=== PATIENT | female | born 1940 | race Caucasian/White ===

== ENCOUNTER 2019-01-19 17:50 | Emergency (ER) | payer MEDICARE, BC, MEDICAID ==
[2019-01-19 17:58] VITALS: BP 124/58
--- NOTE | 2019-01-19 20:16 | EDM.PDOC ---
ED HPI GENERAL MEDICAL PROBLEM - General Chief Complaint: Cardiovascular Problem Stated Complaint: [facility] Time Seen by Provider: 01/19/19 18:05 - History of Present Illness INITIAL COMMENTS - FREE TEXT/NARRATIVE: 78-year-old female brought in from [facility] facility with some chest discomfort episodes of lightheadedness. Patient's been having episodes were pulse drops in the 30s often times she has some chest pressure and some chest discomfort associated with this. Patient had an episode prior to EMS being called today. She has these episodes at rest does not seem to get them while doing exertional activities. The patient is placed in a [facility] home because of inability to really care for herself. The patient has no interest in no desire aggressive workup for anything she is a DNR and declines going to [place] for cardiology evaluation at this point. - Related Data Allergies Allergy/AdvReac Type Severity Reaction Status Date / Time codeine AdvReac Nausea and Verified 01/19/19 17:58 Vomiting Sulfa (Sulfonamide AdvReac Nausea and Verified 01/19/19 17:58 Antibiotics) Vomiting Home Meds: Home Meds Cranberry 1 tab PO DAILY 10/13/16 [History] Vitamin B Complex [B Complex] 1 tab PO BIDMEALS 10/14/16 [History] Acetaminophen [Tylenol] 650 mg PO Q4H PRN #30 tablet 10/19/16 [Rx] Albuterol [Ventolin HFA] 8 gm INH TID #1 inhaler 10/19/16 [Rx] Albuterol/Ipratropium [DuoNeb 3.0-0.5 MG/3 ML] 3 ml NEB Q4H PRN #30 neb [Rx] Benzocaine/Cetylpyrd/Menthol [Cepacol Sore Throat] 1 lozenge MUCMEM Q2H PRN #30 louis 10/19/16 [Rx] Cholecalciferol (Vitamin D3) [Vitamin D3] 5,000 units PO DAILY #30 tablet [Rx] Dextromethorphan/guaiFENesin [Robitussin DM] 10 ml PO Q4H cup 10/19/16 [Rx] FLUoxetine [PROzac] 20 mg PO DAILY #30 cap 10/19/16 [Rx] Fluticasone/Salmeterol [Advair Diskus 250-50] 0 puff INH BID #1 inhaler [Rx] Furosemide [Lasix] 40 mg PO DAILY #30 tablet 10/19/16 [Rx] Multivitamins,Therapeutic [Thera] 1 each PO BEDTIME tablet 10/19/16 [Rx] Pantoprazole [ProTONIX] 40 mg PO DAILY #30 tab.cr 10/19/16 [Rx] Potassium Chloride 20 meq PO DAILY #30 tablet.er 10/19/16 [Rx] Past Medical History HEENT History: Reports: Impaired Vision, Other (See Below) Other HEENT History: wears glasses Cardiovascular History: Reports: Heart Failure, Syncope Other Cardiovascular History: syncopal episode happening for awhile, states HR irregular 30-100 Respiratory History: Reports: Asthma, COPD Other Respiratory History: patient states she has had these episodes of shortness of breath her whole life; states she has always been told it was recurrent bronchitis Gastrointestinal History: Reports: None Genitourinary History: Reports: UTI, Recurrent 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: Musculoskeletal History: Reports: Arthritis Neurological History: Reports: Migraines Psychiatric History: Reports: Depression Endocrine/Metabolic History: Reports: Obesity/BMI 30+ Hematologic History: Reports: Other (See Below) Other Hematologic History: frequent clots Immunologic History: Reports: None Oncologic (Cancer) History: Reports: None Dermatologic History: Reports: None - Infectious Disease History Infectious Disease History: Reports: MRSA - Past Surgical History Head Surgeries/Procedures: Reports: None HEENT Surgical History: Reports: Oral Surgery, Tonsillectomy Female Surgical History: Reports: Tubal Ligation Social & Family History - Family History Family Medical History: Noncontributory Cardiac: Reports: CAD Other Cardiac Family History: Patient states there is a significant cardiac history on both her mother's and father's sides. Respiratory: Reports: Asthma GI: Reports: None : Reports: None OBGYN: Reports: None Musculoskeletal: Reports: None Neurological: Reports: None Psychiatric: Reports: None Endocrine/Metabolic: Reports: None Hematologic: Reports: None Immunologic: Reports: None Oncologic: Reports: None - Tobacco Use Smoking Status *Q: Never Smoker - Caffeine Use Caffeine Use: Reports: Tea - Recreational Drug Use Recreational Drug Use: No ED ROS GENERAL - Review of Systems Review Of Systems: See Below Constitutional: Reports: No Symptoms HEENT: Reports: No Symptoms Respiratory: Reports: No Symptoms Cardiovascular: Reports: Chest Pain, Other (Multiple near syncopal type episodes ). Denies: Syncope GI/Abdominal: Reports: No Symptoms : Reports: No Symptoms Neurological: Reports: No Symptoms ED EXAM, GENERAL - Physical Exam Exam: See Below Exam Limited By: No Limitations General Appearance: Alert, No Apparent Distress Head: Atraumatic, Normocephalic Neck: Normal Inspection, Supple, Non-Tender, Full Range of Motion Respiratory/Chest: No Respiratory Distress, Lungs Clear, Normal Breath Sounds Cardiovascular: Regular Rate, Rhythm, No Murmur, Other (He has chronic lower extremity edema however this is improving not worsening over time) GI/Abdominal: Normal Bowel Sounds, Soft, Non-Tender Neurological: Alert, Oriented, Normal Cognition Psychiatric: Normal Affect, Normal Mood Skin Exam: Warm, Dry, Intact EKG INTERPRETATION EKG Date: 01/19/19 Rhythm: NSR (Mild bradycardia rate 53) [place]: Normal P-Wave: Present QRS: Normal ST-T: Normal QT: Normal Comparison: No Change EKG Interpretation Comments: Probable normal EKG Course - Vital Signs Last Recorded V/S: Last Vital Signs Temp 36.8 C 01/19/19 17:54 Pulse 54 L 01/19/19 17:54 Resp 18 01/19/19 17:54 BP 124/58 L 01/19/19 17:54 Pulse Ox 96 01/19/19 17:54 - Orders/Labs/Meds Orders: Active Orders 24 hr Category Date Time Status EKG 12 Lead [EKG Documentation Completion] [RC] URGENT Care 01/19/19 18:11 Active Holter Monitor 48 Hours [RC] .PRN Care 01/19/19 20:13 Active Chest 1V Frontal [CR] Stat Exams 01/19/19 18:15 Taken Labs: Laboratory Tests 01/19/19 01/19/19 01/19/19 Range/Units 18:59 18:59 18:59 WBC 6.40 (3.98-10.04) K/mm3 RBC 3.73 L (3.98-5.22) M/mm3 Hgb 11.1 L (11.2-15.7) gm/L Hct 33.2 L (34.1-44.9) % MCV 89.0 (79.4-94.8) fl MCH 29.8 (25.6-32.2) pg MCHC 33.4 (32.2-35.5) g/dl RDW Std Deviation 43.6 (36.4-46.3) fL Plt Count 209 (182-369) K/mm3 MPV 9.8 (9.4-12.3) fl Neutrophils % (Manual) 49 (40-60) % Band Neutrophils % 0 (0-10) % Lymphocytes % (Manual) 40 (20-40) % Atypical Lymphs % 0 % Monocytes % (Manual) 8 (2-10) % Eosinophils % (Manual) 3 (0.7-5.8) % Basophils % (Manual) 0 L (0.1-1.2) Platelet Estimate Adequate RBC Morph Comment Normal PT 11.1 (9.5-12.1) SECONDS INR 1.02 APTT 28 (24-31) SECONDS Sodium 144 (136-145) mEq/L Potassium 3.4 L (3.5-5.1) mEq/L Chloride 107 (98-107) mEq/L Carbon Dioxide 27 (21-32) mEq/L Anion Gap 13.4 (5-15) BUN 16 (7-18) mg/dL Creatinine 1.4 H (0.55-1.02) mg/dL Est Cr Clr Drug Dosing 26.62 mL/min Estimated GFR (MDRD) 36 (>60) mL/min BUN/Creatinine Ratio 11.4 L (14-18) Glucose 96 (83-115) mg/dL Calcium 8.1 L (8.5-10.1) mg/dL Total Bilirubin 0.3 (0.2-1.0) mg/dL AST 15 (15-37) U/L ALT 23 (14-59) U/L Alkaline Phosphatase 64 (46-116) U/L Troponin I < 0.017 (0.00-0.056) ng/mL Total Protein 6.3 L (6.4-8.2) g/dl Albumin 3.1 L (3.4-5.0) g/dl Globulin 3.2 gm/dL Albumin/Globulin Ratio 1.0 (1-2) - Re-Assessments/Exams Free Text/Narrative Re-Assessment/Exam: 01/19/19 20:14 78-year-old female evaluated for lightheadedness dizziness chest pain and episodes of her pulse dropping into the 30s. She was sent here from the longterm for evaluation. Cardiac evaluation thus far is unremarkable did offer to keep her for a second troponin however this is declined she wants to go home back to the [facility] facility.. Case discussed with the patient in detail about her CODE STATUS and about interventions she does not want any aggressive therapy she is a DNR she does not want to go to [place] for catheterization or further cardiac evaluation however if a pacemaker down the road improves her quality of life she is willing to consider this. Departure - Departure Time of Disposition: 20:15 Disposition: DC/Tfer to SNF 03 Reason for Transfer *Q: Other Clinical Impression: History of bradycardia, Chest pain Instructions: Bradycardia, Adult, Nonspecific Chest Pain, [id number] Referrals: Celestino Vázquez MD [Primary Care Provider] - Forms: ED Department Discharge Additional Instructions: Return to the emergency room with any questions problems worsening symptoms. Follow-up with Dr. Vázquez a couple of days after the Holter monitor is completed. Return the Holter monitor as directed. - My Orders Last 24 Hours: My Active Orders 01/19/19 18:11 EKG 12 Lead [EKG Documentation Completion] [RC] URGENT 01/19/19 18:15 Chest 1V Frontal [CR] Stat 01/19/19 20:13 Holter Monitor 48 Hours [RC] .PRN - Assessment/Plan Last 24 Hours: My Active Orders 01/19/19 18:11 EKG 12 Lead [EKG Documentation Completion] [RC] URGENT 01/19/19 18:15 Chest 1V Frontal [CR] Stat 01/19/19 20:13 Holter Monitor 48 Hours [RC] .PRN
--- NOTE | 2019-01-20 06:09 | CR ---
Chest: Portable view of the chest was obtained. Comparison: Prior chest x-ray of 10/16/16. Heart size and mediastinum are within normal limits for portable technique. Minimal atelectasis within the left lateral costophrenic angle is incidentally noted. Lungs otherwise are clear. Bony structures are grossly intact. Impression: 1. Incidental finding. Nothing acute is appreciated on portable chest x-ray. Diagnostic code #2
== END 2019-01-19 20:40 ==
LOC: JD.ED 17:50
DX: R07.89 Other chest pain (principal); Z88.5 Allergy status to narcotic agent; Z88.2 Allergy status to sulfonamides; Z79.899 Other long term (current) drug therapy
CPT/HCPCS: 36415; 71045; 71045-26; 80053; 84484; 85007; 85027; 85610; 85730; 93005; 93010; 99284; 99285-25

== ENCOUNTER 2019-01-20 14:34 | Observation (INO) | payer MEDICARE, BC, MEDICAID ==
[2019-01-20] MEDS ORDERED: Acetaminophen 325 MG Tab PO ONE (17:07)
--- NOTE | 2019-01-20 17:32 | EDM.PDOC ---
ED HPI GENERAL MEDICAL PROBLEM - General Chief Complaint: Chest Pain Stated Complaint: [facility] Time Seen by Provider: 01/20/19 14:40 - History of Present Illness INITIAL COMMENTS - FREE TEXT/NARRATIVE: 78-year-old female returns the emergency room with a recurrent bout of chest pain this morning she had some chest pain associated with a low pulse she's not sure how low. Patient was seen here yesterday and was pretty resistant to the idea of further evaluation and ultimately wanted to go home. She does not want intervention such as cardiac catheterization and that sort however we did discuss the bradycardia as it seems to be associated with a lot of her symptoms. She is now considering and is willing to have a pacemaker placed if it will improve the quality of her life. Today's episode resolved after single nitroglycerin by EMS. 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: Other (see below) Other Treatments SPEED BELT SANDER TENDER: see ambulance report Chest Pain Score (Numeric/FACES): 0 - Related Data Allergies Allergy/AdvReac Type Severity Reaction Status Date / Time codeine AdvReac Nausea and Verified 01/19/19 17:58 Vomiting Sulfa (Sulfonamide AdvReac Nausea and Verified 01/19/19 17:58 Antibiotics) Vomiting Home Meds: Home Meds Cranberry 1 tab PO DAILY 10/13/16 [History] Vitamin B Complex [B Complex] 1 tab PO BIDMEALS 10/14/16 [History] Acetaminophen [Tylenol] 650 mg PO Q4H PRN #30 tablet 10/19/16 [Rx] Albuterol [Ventolin HFA] 8 gm INH TID #1 inhaler 10/19/16 [Rx] Albuterol/Ipratropium [DuoNeb 3.0-0.5 MG/3 ML] 3 ml NEB Q4H PRN #30 neb [Rx] Benzocaine/Cetylpyrd/Menthol [Cepacol Sore Throat] 1 lozenge MUCMEM Q2H PRN #30 louis 10/19/16 [Rx] Cholecalciferol (Vitamin D3) [Vitamin D3] 5,000 units PO DAILY #30 tablet [Rx] Dextromethorphan/guaiFENesin [Robitussin DM] 10 ml PO Q4H cup 10/19/16 [Rx] FLUoxetine [PROzac] 20 mg PO DAILY #30 cap 10/19/16 [Rx] Fluticasone/Salmeterol [Advair Diskus 250-50] 0 puff INH BID #1 inhaler [Rx] Furosemide [Lasix] 40 mg PO DAILY #30 tablet 10/19/16 [Rx] Multivitamins,Therapeutic [Thera] 1 each PO BEDTIME tablet 10/19/16 [Rx] Pantoprazole [ProTONIX] 40 mg PO DAILY #30 tab.cr 10/19/16 [Rx] Potassium Chloride 20 meq PO DAILY #30 tablet.er 10/19/16 [Rx] Past Medical History HEENT History: Reports: Impaired Vision, Other (See Below) Other HEENT History: wears glasses Cardiovascular History: Reports: Heart Failure, Syncope Other Cardiovascular History: syncopal episode happening for awhile, states HR irregular 30-100 Respiratory History: Reports: Asthma, COPD Other Respiratory History: patient states she has had these episodes of shortness of breath her whole life; states she has always been told it was recurrent bronchitis Gastrointestinal History: Reports: None Genitourinary History: Reports: UTI, Recurrent 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: Musculoskeletal History: Reports: Arthritis Neurological History: Reports: Migraines Psychiatric History: Reports: Depression Endocrine/Metabolic History: Reports: Obesity/BMI 30+ Hematologic History: Reports: Other (See Below) Other Hematologic History: frequent clots Immunologic History: Reports: None Oncologic (Cancer) History: Reports: None Dermatologic History: Reports: None - Infectious Disease History Infectious Disease History: Reports: MRSA - Past Surgical History Head Surgeries/Procedures: Reports: None HEENT Surgical History: Reports: Oral Surgery, Tonsillectomy Female Surgical History: Reports: Tubal Ligation Social & Family History - Family History Family Medical History: Noncontributory Cardiac: Reports: CAD Other Cardiac Family History: Patient states there is a significant cardiac history on both her mother's and father's sides. Respiratory: Reports: Asthma GI: Reports: None : Reports: None OBGYN: Reports: None Musculoskeletal: Reports: None Neurological: Reports: None Psychiatric: Reports: None Endocrine/Metabolic: Reports: None Hematologic: Reports: None Immunologic: Reports: None Oncologic: Reports: None - Tobacco Use Smoking Status *Q: Never Smoker - Caffeine Use Caffeine Use: Reports: Coffee, Soda - Recreational Drug Use Recreational Drug Use: No ED ROS GENERAL - Review of Systems Review Of Systems: See Below Constitutional: Reports: No Symptoms HEENT: Reports: No Symptoms Respiratory: Reports: No Symptoms Cardiovascular: Reports: Chest Pain, Lightheadedness, Other (Low pulse rate) Endocrine: Reports: No Symptoms GI/Abdominal: Reports: No Symptoms : Reports: No Symptoms Musculoskeletal: Reports: No Symptoms Skin: Reports: No Symptoms Neurological: Reports: No Symptoms Psychiatric: Reports: No Symptoms Hematologic/Lymphatic: Reports: No Symptoms ED EXAM, GENERAL - Physical Exam Exam: See Below Exam Limited By: No Limitations General Appearance: Alert, No Apparent Distress, Other (She was pain-free the time of my examination her vital signs look reasonable her pulse is in the 50s and 60s. She has a little bit of a headache but she had this before the episode prior to coming and she was treated by EMS with nitroglycerin and aspirin 1 dose of sublingual nitroglycerin.) Head: Atraumatic, Normocephalic Neck: Normal Inspection, Supple, Non-Tender, Full Range of Motion Respiratory/Chest: No Respiratory Distress, Lungs Clear, Normal Breath Sounds Cardiovascular: Regular Rate, Rhythm, No Edema, No Murmur, Bradycardia (Rate in the 50s on my exam), Other (Telemetry mostly shows rate in the 50s consistent QRSs following a P-wave) GI/Abdominal: Normal Bowel Sounds, Soft, Non-Tender Back Exam: Normal Inspection. No: CVA Tenderness (L), CVA Tenderness (R) Extremities: Other (Support hose in place) EKG INTERPRETATION EKG Date: 01/20/19 Rhythm: NSR Rate (Beats/Min): 55 [place]: Normal P-Wave: Present QRS: Other (Mostly normal possible early transition) ST-T: Other (Very subtle very nonspecific changes) QT: Normal Comparison: No Change Course - Vital Signs Last Recorded V/S: Last Vital Signs Temp 36.8 C 01/20/19 14:53 Pulse 54 L 01/20/19 14:53 Resp 16 01/20/19 14:53 BP 129/66 01/20/19 14:53 Pulse Ox 93 L 01/20/19 14:53 - Orders/Labs/Meds Orders: Active Orders 24 hr Category Date Time Status Patient Status [ADT] Routine ADT 01/20/19 18:52 Active Bedrest Bedside Commode [RC] ASDIRECTED Care 01/20/19 18:51 Active Cardiac Monitoring [RC] CONTINUOUS Care 01/20/19 18:56 Active EKG Documentation Completion [RC] STAT Care 01/20/19 15:01 Active Height and Weight [RC] DAILY Care 01/20/19 18:51 Active Intake and Output [RC] QSHIFT Care 01/20/19 18:56 Active Oxygen Therapy [RC] PRN Care 01/20/19 18:52 Active Pulse Oximetry [RC] CONTINUOUS Care 01/20/19 18:56 Active VTE/DVT Education [RC] PER UNIT ROUTINE Care 01/20/19 18:52 Active Vital Signs [RC] Q4H Care 01/20/19 18:52 Active Regular Diet [DIET] Diet 01/20/19 Dinner Active Chest 1V Frontal [CR] Stat Exams 01/20/19 15:09 Taken TROPONIN I [CHEM] Timed Lab 01/20/19 22:00 Ordered TROPONIN I [CHEM] Timed Lab 01/21/19 04:00 Ordered TROPONIN I [CHEM] Timed Lab 01/21/19 10:00 Ordered Acetaminophen [Tylenol] Med 01/20/19 18:59 Ordered 650 mg PO Q4H PRN Albuterol/Ipratropium [DuoNeb 3.0-0.5 MG/3 ML] Med 01/20/19 18:59 Ordered 3 ml NEB Q4H PRN Aspirin [Ecotrin] Med 01/20/19 19:15 Ordered 325 mg PO DAILY FLUoxetine [PROzac] Med 01/21/19 09:00 Ordered 20 mg PO DAILY Heparin Sodium Med 01/20/19 19:00 Ordered 5,000 units SUBCUT Q8H Isosorbide Mononitrate [Imdur] Med 01/20/19 19:15 Ordered 30 mg PO DAILY Ondansetron [Zofran] Med 01/20/19 18:51 Ordered 4 mg IV Q6H PRN Pantoprazole [ProTONIX] Med 01/21/19 09:00 Ordered 40 mg PO DAILY Sodium Chloride 0.9% [Normal Saline] 1,000 ml Med 01/20/19 19:00 Ordered IV ASDIRECTED Resuscitation Status Routine Resus Stat 01/20/19 18:51 Ordered EKG 12 Lead [EK] AM Ther 01/21/19 05:11 Ordered Medication Orders Acetaminophen (Tylenol) 650 mg PO Q4H PRN PRN Reason: Pain/Fever Albuterol/Ipratropium (Duoneb 3.0-0.5 Mg/3 Ml) 3 ml NEB Q4H PRN PRN Reason: SOB/wheezing Aspirin (Ecotrin) 325 mg PO DAILY [facility] Fluoxetine HCl (Prozac) 20 mg PO DAILY [facility] Heparin Sodium (Porcine) (Heparin Sodium) 5,000 units SUBCUT Q8H [facility] Sodium Chloride (Normal Saline) 1,000 mls @ 100 mls/hr IV ASDIRECTED [facility] Isosorbide Mononitrate (Imdur) 30 mg PO DAILY [facility] Ondansetron HCl (Zofran) 4 mg IV Q6H PRN PRN Reason: Nausea/Vomiting Pantoprazole Sodium (Protonix) 40 mg PO DAILY [facility] Labs: Laboratory Tests 01/20/19 01/20/19 01/20/19 Range/Units 15:24 15:24 15:24 WBC 5.65 (3.98-10.04) K/mm3 RBC 3.62 L (3.98-5.22) M/mm3 Hgb 10.9 L (11.2-15.7) gm/L Hct 32.7 L (34.1-44.9) % MCV 90.3 (79.4-94.8) fl MCH 30.1 (25.6-32.2) pg MCHC 33.3 (32.2-35.5) g/dl RDW Std Deviation 44.0 (36.4-46.3) fL Plt Count 207 (182-369) K/mm3 MPV 10.1 (9.4-12.3) fl Neutrophils % (Manual) 67 H (40-60) % Band Neutrophils % 0 (0-10) % Lymphocytes % (Manual) 28 (20-40) % Atypical Lymphs % 0 % Monocytes % (Manual) 3 (2-10) % Eosinophils % (Manual) 2 (0.7-5.8) % Basophils % (Manual) 0 L (0.1-1.2) Platelet Estimate Adequate RBC Morph Comment Normal Sodium 143 (136-145) mEq/L Potassium 3.7 (3.5-5.1) mEq/L Chloride 105 (98-107) mEq/L Carbon Dioxide 29 (21-32) mEq/L Anion Gap 12.7 (5-15) BUN 15 (7-18) mg/dL Creatinine 1.6 H (0.55-1.02) mg/dL Est Cr Clr Drug Dosing 23.29 mL/min Estimated GFR (MDRD) 31 (>60) mL/min BUN/Creatinine Ratio 9.4 L (14-18) Glucose 103 (83-115) mg/dL Calcium 8.6 (8.5-10.1) mg/dL Magnesium 2.2 (1.8-2.4) mg/dl Total Bilirubin 0.3 (0.2-1.0) mg/dL AST 14 L (15-37) U/L ALT 24 (14-59) U/L Alkaline Phosphatase 67 (46-116) U/L Troponin I < 0.017 (0.00-0.056) ng/mL Total Protein 6.2 L (6.4-8.2) g/dl Albumin 3.1 L (3.4-5.0) g/dl Globulin 3.1 gm/dL Albumin/Globulin Ratio 1.0 (1-2) Urine Color (Yellow) Urine Appearance (Clear) Urine pH (5.0-8.0) Ur Specific [place] (1.005-1.030) Urine Protein (Negative) Urine Glucose (UA) (Negative) Urine Ketones (Negative) Urine Occult Blood (Negative) Urine Nitrite (Negative) Urine Bilirubin (Negative) Urine Urobilinogen (0.2-1.0) Ur Leukocyte Esterase (Negative) Urine RBC (0-5) /hpf Urine WBC (0-5) /hpf Ur Epithelial Cells (0-5) /hpf Urine Bacteria (FEW) /hpf Urine Mucus (FEW) /hpf 01/20/19 Range/Units 16:35 WBC (3.98-10.04) K/mm3 RBC (3.98-5.22) M/mm3 Hgb (11.2-15.7) gm/L Hct (34.1-44.9) % MCV (79.4-94.8) fl MCH (25.6-32.2) pg MCHC (32.2-35.5) g/dl RDW Std Deviation (36.4-46.3) fL Plt Count (182-369) K/mm3 MPV (9.4-12.3) fl Neutrophils % (Manual) (40-60) % Band Neutrophils % (0-10) % Lymphocytes % (Manual) (20-40) % Atypical Lymphs % % Monocytes % (Manual) (2-10) % Eosinophils % (Manual) (0.7-5.8) % Basophils % (Manual) (0.1-1.2) Platelet Estimate RBC Morph Comment Sodium (136-145) mEq/L Potassium (3.5-5.1) mEq/L Chloride (98-107) mEq/L Carbon Dioxide (21-32) mEq/L Anion Gap (5-15) BUN (7-18) mg/dL Creatinine (0.55-1.02) mg/dL Est Cr Clr Drug Dosing mL/min Estimated GFR (MDRD) (>60) mL/min BUN/Creatinine Ratio (14-18) Glucose (83-115) mg/dL Calcium (8.5-10.1) mg/dL Magnesium (1.8-2.4) mg/dl Total Bilirubin (0.2-1.0) mg/dL AST (15-37) U/L ALT (14-59) U/L Alkaline Phosphatase (46-116) U/L Troponin I (0.00-0.056) ng/mL Total Protein (6.4-8.2) g/dl Albumin (3.4-5.0) g/dl Globulin gm/dL Albumin/Globulin Ratio (1-2) Urine Color Yellow (Yellow) Urine Appearance Clear (Clear) Urine pH 7.0 (5.0-8.0) Ur Specific [place] 1.015 (1.005-1.030) Urine Protein Negative (Negative) Urine Glucose (UA) Negative (Negative) Urine Ketones Negative (Negative) Urine Occult Blood Negative (Negative) Urine Nitrite Negative (Negative) Urine Bilirubin Negative (Negative) Urine Urobilinogen 0.2 (0.2-1.0) Ur Leukocyte Esterase Trace H (Negative) Urine RBC 0-5 (0-5) /hpf Urine WBC 5-10 H (0-5) /hpf Ur Epithelial Cells 0-5 (0-5) /hpf Urine Bacteria Few (FEW) /hpf Urine Mucus Not seen (FEW) /hpf Meds: Medications Generic Name Dose Route Start Last Admin Trade Name Freq PRN Reason Stop Dose Admin Acetaminophen 650 mg 01/20/19 18:59 Tylenol PO Q4H PRN Pain/Fever Albuterol/Ipratropium 3 ml 01/20/19 18:59 Duoneb 3.0-0.5 Mg/3 Ml NEB Q4H PRN SOB/wheezing Aspirin 325 mg 01/20/19 19:15 Ecotrin PO DAILY [facility] Fluoxetine HCl 20 mg 01/21/19 09:00 Prozac PO DAILY [facility] Heparin Sodium (Porcine) 5,000 units 01/20/19 19:00 Heparin Sodium SUBCUT Q8H [facility] Sodium Chloride 1,000 mls @ 100 mls/hr 01/20/19 19:00 Normal Saline IV ASDIRECTED [facility] Isosorbide Mononitrate 30 mg 01/20/19 19:15 Imdur PO DAILY [facility] Ondansetron HCl 4 mg 01/20/19 18:51 Zofran IV Q6H PRN Nausea/Vomiting Pantoprazole Sodium 40 mg 01/21/19 09:00 Protonix PO DAILY [facility] Discontinued Medications Generic Name Dose Route Start Last Admin Trade Name Freq PRN Reason Stop Dose Admin Acetaminophen 650 mg 01/20/19 17:07 01/20/19 17:41 Tylenol PO 01/20/19 17:08 650 mg NOW ONE Administration - Re-Assessments/Exams Free Text/Narrative Re-Assessment/Exam: 01/20/19 18:21 I discussed the situation with Dr. Benedict who is willing to come to see the patient I also discussed the situation with Dr. Ware fur tinter at [facility] in [place] who recommended that we watch the patient to see if we can confirm sick sinus syndrome as a potential cause because of her wishes not to get too aggressive albeit she is considering pacemaker he did recommend that a lot of her bradycardia could be secondary to ischemia in starting her on Imdur 30 mg daily might be of some benefit to help her. Departure - Departure Time of Disposition: 18:22 Disposition: Admitted As Inpatient 67 Clinical Impression: Bradycardia, Chest pain Referrals: Celestino Vázquez MD [Primary Care Provider] - Forms: ED Department Discharge - My Orders Last 24 Hours: My Active Orders 01/20/19 15:01 EKG Documentation Completion [RC] STAT 01/20/19 15:09 Chest 1V Frontal [CR] Stat - Assessment/Plan Last 24 Hours: My Active Orders 01/20/19 15:01 EKG Documentation Completion [RC] STAT 01/20/19 15:09 Chest 1V Frontal [CR] Stat
[2019-01-20] MEDS ORDERED: Ondansetron 4 MG/2 ML SDV IV PRN (18:51)
[2019-01-20] MEDS ORDERED: Albuterol/Ipratropium 3.0-0.5 MG/3 ML Neb Soln NEB PRN (18:59)
[2019-01-20] MEDS ORDERED: Acetaminophen 325 MG Tab PO PRN (18:59)
[2019-01-20] MEDS ORDERED: Temazepam 15 MG Cap PO PRN (19:16)
--- NOTE | 2019-01-20 19:51 | PCM.HP ---
H&P History of Present Illness - General Date of Service: 01/20/19 Admit Problem/Dx: Admission Diagnosis/Problem Admission Diagnosis/Problem Chest pain, rule out acute myocardial infarction Source of Information: Patient, Family - History of Present Illness Initial Comments - Free Text/Narative: 78-year-old female presents to the emergency room after having a recurrent bout of chest pain. Patient had chest pain this morning as she was waking up and was found to have a low pulse and blood pressure. Patient lives at [facility] and nursing found her to be bradycardic with a pulse of 41. She states the pain was heavy like bricks were on her chest. She denies any radiation. EMS was called and she was given nitroglycerin and aspirin in route to the emergency room. Symptoms resolved with nitroglycerin. She states that she has had a similar episode in the past. She has been having chest pains now for months. She was seen in the emergency room yesterday when she was walking down the [address] and everything turned marx and she fell down. She walked approximately 5 or 6 steps. At that time when nursing arrived her pulse was 34 and she has a low blood pressure. We are evaluating her at the request of the emergency room physician who spoke with cardiology in [place]. Cardiology would like her monitored on the floor with telemetry and given isosorbide mononitrate 30 mg. This will help determine if she is having bradycardia secondary to ischemia or sick sinus syndrome. Chest Pain Score (Numeric/FACES): 0 - Related Data Allergies/Adverse Reactions: Allergies Allergy/AdvReac Type Severity Reaction Status Date / Time codeine AdvReac Nausea and Verified 01/19/19 17:58 Vomiting Sulfa (Sulfonamide AdvReac Nausea and Verified 01/19/19 17:58 Antibiotics) Vomiting Home Medications: Home Meds Acetaminophen [Tylenol] 650 mg PO DAILY 01/20/19 [History] Albuterol [Ventolin HFA] 1 puff INH Q6H PRN 01/20/19 [History] Cholecalciferol (Vitamin D3) [Vitamin D3] 3,000 unit PO DAILY 01/20/19 [History] Cranberry 200 mg PO DAILY 01/20/19 [History] FLUoxetine HCl [Fluoxetine HCl] 40 mg PO DAILY 01/20/19 [History] Fluticasone/Salmeterol [Advair 250-50] 1 puff INH BID 01/20/19 [History] Furosemide 40 mg PO BID 01/20/19 [History] Multivit with Iron,Minerals [Spectravite Senior] 1 tab PO DAILY 01/20/19 [ History] Potassium Chloride [Klor-Con M20] 20 meq PO DAILY 01/20/19 [History] Simethicone 80 mg PO Q6H PRN 01/20/19 [History] traZODone HCl [Trazodone HCl] 50 mg PO DAILY 01/20/19 [History] Past Medical History HEENT History: Reports: Impaired Vision, Other (See Below) Other HEENT History: wears glasses Cardiovascular History: Reports: Heart Failure, Syncope Other Cardiovascular History: syncopal episode happening for awhile, states HR irregular 30-100 Respiratory History: Reports: Asthma, COPD Other Respiratory History: patient states she has had these episodes of shortness of breath her whole life; states she has always been told it was recurrent bronchitis Gastrointestinal History: Reports: None Genitourinary History: Reports: UTI, Recurrent [employer] History: Reports: Musculoskeletal History: Reports: Arthritis Neurological History: Reports: Migraines Psychiatric History: Reports: Depression Endocrine/Metabolic History: Reports: Obesity/BMI 30+ Hematologic History: Reports: Other (See Below) Other Hematologic History: frequent clots Immunologic History: Reports: None Oncologic (Cancer) History: Reports: None Dermatologic History: Reports: None - Infectious Disease History Infectious Disease History: Reports: MRSA - Past Surgical History Head Surgeries/Procedures: Reports: None HEENT Surgical History: Reports: Oral Surgery, Tonsillectomy Female Surgical History: Reports: Tubal Ligation Social & Family History - Family History Family Medical History: Noncontributory Cardiac: Reports: CAD Other Cardiac Family History: Patient states there is a significant cardiac history on both her mother's and father's sides. Respiratory: Reports: Asthma GI: Reports: None : Reports: None OBGYN: Reports: None Musculoskeletal: Reports: None Neurological: Reports: None Psychiatric: Reports: None Endocrine/Metabolic: Reports: None Hematologic: Reports: None Immunologic: Reports: None Oncologic: Reports: None - Tobacco Use Smoking Status *Q: Never Smoker - Caffeine Use Caffeine Use: Reports: Coffee, Soda - Recreational Drug Use Recreational Drug Use: No H&P Review of Systems - Review of Systems: Review Of Systems: See Below General: Reports: Weakness, Fatigue HEENT: Reports: No Symptoms Pulmonary: Reports: No Symptoms. Denies: Shortness of Breath, Cough Cardiovascular: Reports: Chest Pain, Edema. Denies: Palpitations Gastrointestinal: Reports: Abdominal Pain, Nausea, Vomiting. Denies: Black Stool, Bloody Stool Genitourinary: Reports: No Symptoms. Denies: Dysuria Musculoskeletal: Reports: Back Pain Skin: Reports: No Symptoms Psychiatric: Reports: Depression Neurological: Reports: Syncope, Difficulty Walking Exam - Exam Exam: See Below - Vital Signs Vital Signs: Last Vital Signs Temp 98.3 F 01/20/19 14:53 Pulse 54 L 01/20/19 14:53 Resp 16 01/20/19 14:53 BP 129/66 01/20/19 14:53 Pulse Ox 93 L 01/20/19 14:53 Weight: 174 lb 4 oz - Exam General: Alert, Oriented HEENT: Conjunctiva Clear, Mucosa Moist & [place] Neck: Supple, Trachea Midline Lungs: Clear to Auscultation, Normal Respiratory Effort Cardiovascular: Regular Rhythm, Bradycardia GI/Abdominal Exam: Normal Bowel Sounds, Soft, Non-Tender, No Distention Extremities: Normal Inspection Skin: Warm, Dry Neurological: Cranial Nerves Intact Neuro Extensive - Mental Status: Alert Neuro Extensive - Motor, Sensory, Reflexes: CN II-XII Intact Psychiatric: Alert, Depressed - Patient Data Lab Results Last 24 hrs: Laboratory Results - last 24 hr 01/20/19 01/20/19 01/20/19 Range/Units 15:24 15:24 15:24 WBC 5.65 (3.98-10.04) K/mm3 RBC 3.62 L (3.98-5.22) M/mm3 Hgb 10.9 L (11.2-15.7) gm/L Hct 32.7 L (34.1-44.9) % MCV 90.3 (79.4-94.8) fl MCH 30.1 (25.6-32.2) pg MCHC 33.3 (32.2-35.5) g/dl RDW Std Deviation 44.0 (36.4-46.3) fL Plt Count 207 (182-369) K/mm3 MPV 10.1 (9.4-12.3) fl Neutrophils % (Manual) 67 H (40-60) % Band Neutrophils % 0 (0-10) % Lymphocytes % (Manual) 28 (20-40) % Atypical Lymphs % 0 % Monocytes % (Manual) 3 (2-10) % Eosinophils % (Manual) 2 (0.7-5.8) % Basophils % (Manual) 0 L (0.1-1.2) Platelet Estimate Adequate RBC Morph Comment Normal Sodium 143 (136-145) mEq/L Potassium 3.7 (3.5-5.1) mEq/L Chloride 105 (98-107) mEq/L Carbon Dioxide 29 (21-32) mEq/L Anion Gap 12.7 (5-15) BUN 15 (7-18) mg/dL Creatinine 1.6 H (0.55-1.02) mg/dL Est Cr Clr Drug Dosing 23.29 mL/min Estimated GFR (MDRD) 31 (>60) mL/min BUN/Creatinine Ratio 9.4 L (14-18) Glucose 103 (83-115) mg/dL Calcium 8.6 (8.5-10.1) mg/dL Magnesium 2.2 (1.8-2.4) mg/dl Total Bilirubin 0.3 (0.2-1.0) mg/dL AST 14 L (15-37) U/L ALT 24 (14-59) U/L Alkaline Phosphatase 67 (46-116) U/L Troponin I < 0.017 (0.00-0.056) ng/mL Total Protein 6.2 L (6.4-8.2) g/dl Albumin 3.1 L (3.4-5.0) g/dl Globulin 3.1 gm/dL Albumin/Globulin Ratio 1.0 (1-2) Urine Color (Yellow) Urine Appearance (Clear) Urine pH (5.0-8.0) Ur Specific [place] (1.005-1.030) Urine Protein (Negative) Urine Glucose (UA) (Negative) Urine Ketones (Negative) Urine Occult Blood (Negative) Urine Nitrite (Negative) Urine Bilirubin (Negative) Urine Urobilinogen (0.2-1.0) Ur Leukocyte Esterase (Negative) Urine RBC (0-5) /hpf Urine WBC (0-5) /hpf Ur Epithelial Cells (0-5) /hpf Urine Bacteria (FEW) /hpf Urine Mucus (FEW) /hpf 01/20/19 Range/Units 16:35 WBC (3.98-10.04) K/mm3 RBC (3.98-5.22) M/mm3 Hgb (11.2-15.7) gm/L Hct (34.1-44.9) % MCV (79.4-94.8) fl MCH (25.6-32.2) pg MCHC (32.2-35.5) g/dl RDW Std Deviation (36.4-46.3) fL Plt Count (182-369) K/mm3 MPV (9.4-12.3) fl Neutrophils % (Manual) (40-60) % Band Neutrophils % (0-10) % Lymphocytes % (Manual) (20-40) % Atypical Lymphs % % Monocytes % (Manual) (2-10) % Eosinophils % (Manual) (0.7-5.8) % Basophils % (Manual) (0.1-1.2) Platelet Estimate RBC Morph Comment Sodium (136-145) mEq/L Potassium (3.5-5.1) mEq/L Chloride (98-107) mEq/L Carbon Dioxide (21-32) mEq/L Anion Gap (5-15) BUN (7-18) mg/dL Creatinine (0.55-1.02) mg/dL Est Cr Clr Drug Dosing mL/min Estimated GFR (MDRD) (>60) mL/min BUN/Creatinine Ratio (14-18) Glucose (83-115) mg/dL Calcium (8.5-10.1) mg/dL Magnesium (1.8-2.4) mg/dl Total Bilirubin (0.2-1.0) mg/dL AST (15-37) U/L ALT (14-59) U/L Alkaline Phosphatase (46-116) U/L Troponin I (0.00-0.056) ng/mL Total Protein (6.4-8.2) g/dl Albumin (3.4-5.0) g/dl Globulin gm/dL Albumin/Globulin Ratio (1-2) Urine Color Yellow (Yellow) Urine Appearance Clear (Clear) Urine pH 7.0 (5.0-8.0) Ur Specific [place] 1.015 (1.005-1.030) Urine Protein Negative (Negative) Urine Glucose (UA) Negative (Negative) Urine Ketones Negative (Negative) Urine Occult Blood Negative (Negative) Urine Nitrite Negative (Negative) Urine Bilirubin Negative (Negative) Urine Urobilinogen 0.2 (0.2-1.0) Ur Leukocyte Esterase Trace H (Negative) Urine RBC 0-5 (0-5) /hpf Urine WBC 5-10 H (0-5) /hpf Ur Epithelial Cells 0-5 (0-5) /hpf Urine Bacteria Few (FEW) /hpf Urine Mucus Not seen (FEW) /hpf Result Diagrams: 01/20/19 15:24 01/20/19 15:24 EKG INTERPRETATION EKG Date: 01/20/19 Rhythm: Other (Sinus bradycardia) Rate (Beats/Min): 55 [place]: Normal P-Wave: Present QRS: Normal ST-T: Normal QT: Normal HI/PQ Interval: 118 EKG Interpretation Comments: Sinus bradycardia with ventricular rate of 55 bpm. Early R-wave transition otherwise normal. - Problem List (1) Bradycardia SNOMED Code(s): 15594979 ICD Code: R00.1 - BRADYCARDIA, UNSPECIFIED Status: Acute Current Visit: Yes (2) Chest pain SNOMED Code(s): 74708940 ICD Code: R07.9 - CHEST PAIN, UNSPECIFIED Status: Acute Current Visit: Yes (3) CKD (chronic kidney disease) SNOMED Code(s): 627950600 ICD Code: N18.9 - CHRONIC KIDNEY DISEASE, UNSPECIFIED Status: Chronic Priority: Medium Current Visit: No Qualifiers: Chronic kidney disease stage: unspecified stage Qualified Code(s): N18.9 - Chronic kidney disease, unspecified (4) Diastolic heart failure SNOMED Code(s): 180392214 ICD Code: I50.30 - UNSPECIFIED DIASTOLIC (CONGESTIVE) HEART FAILURE Status : Chronic Priority: Medium Current Visit: No Problem Details: Echo with normal EF but mild diastolic dysfunction; peripheral edema Qualifiers: Heart failure chronicity: acute on chronic Qualified Code(s): I50.33 - Acute on chronic diastolic (congestive) heart failure Problem List Initiated/Reviewed/Updated: Yes Orders Last 24hrs: Active Orders 24 hr Category Date Time Status Patient Status [ADT] Routine ADT 01/20/19 18:52 Active Bedrest Bedside Commode [RC] ASDIRECTED Care 01/20/19 18:51 Active Cardiac Monitoring [RC] CONTINUOUS Care 01/20/19 18:56 Active EKG Documentation Completion [RC] STAT Care 01/20/19 15:01 Active Height and Weight [RC] DAILY Care 01/20/19 18:51 Active Intake and Output [RC] QSHIFT Care 01/20/19 18:56 Active Oxygen Therapy [RC] PRN Care 01/20/19 18:52 Active Pulse Oximetry [RC] CONTINUOUS Care 01/20/19 18:56 Active VTE/DVT Education [RC] PER UNIT ROUTINE Care 01/20/19 18:52 Active Vital Signs [RC] Q4H Care 01/20/19 18:52 Active Regular Diet [DIET] Diet 01/20/19 Dinner Active Chest 1V Frontal [CR] Stat Exams 01/20/19 15:09 Taken CBC WITH AUTO DIFF [HEME] AM Lab 01/21/19 05:11 Ordered CMP [COMPREHENSIVE METABOLIC PN,CMP] [CHEM] AM Lab 01/21/19 05:11 Ordered INR,PT,PROTHROMBIN TIME [COAG] AM Lab 01/21/19 05:11 Ordered MAGNESIUM [CHEM] AM Lab 01/21/19 05:11 Ordered PHOSPHORUS [CHEM] AM Lab 01/21/19 05:11 Ordered PTT,PARTIAL THROMBOPLSTIN TIME [COAG] AM Lab 01/21/19 05:11 Ordered TROPONIN I [CHEM] Timed Lab 01/20/19 22:00 Ordered TROPONIN I [CHEM] Timed Lab 01/21/19 04:00 Ordered TROPONIN I [CHEM] Timed Lab 01/21/19 10:00 Ordered TSH [CHEM] AM Lab 01/21/19 05:11 Ordered Acetaminophen [Tylenol] Med 01/20/19 18:59 Ordered 650 mg PO Q4H PRN Albuterol/Ipratropium [DuoNeb 3.0-0.5 MG/3 ML] Med 01/20/19 18:59 Ordered 3 ml NEB Q4H PRN Aspirin [Ecotrin] Med 01/20/19 19:15 Active 325 mg PO DAILY FLUoxetine [PROzac] Med 01/21/19 09:00 Ordered 20 mg PO DAILY Heparin Sodium Med 01/20/19 20:00 Active 5,000 units SUBCUT Q8H Isosorbide Mononitrate [Imdur] Med 01/20/19 19:15 Ordered 30 mg PO DAILY Ondansetron [Zofran] Med 01/20/19 18:51 Active 4 mg IV Q6H PRN Pantoprazole [ProTONIX] Med 01/21/19 09:00 Ordered 40 mg PO DAILY Sodium Chloride 0.9% [Normal Saline] 1,000 ml Med 01/20/19 19:00 Active IV ASDIRECTED Temazepam [Restoril] Med 01/20/19 19:16 Active 15 mg PO BEDTIME PRN Resuscitation Status Routine Resus Stat 01/20/19 18:51 Ordered EKG 12 Lead [EK] AM Ther 01/21/19 05:11 Ordered Medication Orders Acetaminophen (Tylenol) 650 mg PO Q4H PRN PRN Reason: Pain/Fever Albuterol/Ipratropium (Duoneb 3.0-0.5 Mg/3 Ml) 3 ml NEB Q4H PRN PRN Reason: SOB/wheezing Aspirin (Ecotrin) 325 mg PO DAILY LEONOR Fluoxetine HCl (Prozac) 20 mg PO DAILY LEONOR Heparin Sodium (Porcine) (Heparin Sodium) 5,000 units SUBCUT Q8H LEONOR Sodium Chloride (Normal Saline) 1,000 mls @ 100 mls/hr IV ASDIRECTED LEONOR Isosorbide Mononitrate (Imdur) 30 mg PO DAILY LEONOR Ondansetron HCl (Zofran) 4 mg IV Q6H PRN PRN Reason: Nausea/Vomiting Pantoprazole Sodium (Protonix) 40 mg PO DAILY LEONOR Temazepam (Restoril) 15 mg PO BEDTIME PRN PRN Reason: Sleep Assessment/Plan Comment:: Chest pain rule out NE - Serial troponins, ECG, telemetry Bradycardia - Patient has a baseline sinus bradycardia. Nir was in the room pulse was between 48 and 50. - Monitor overnight. - Patient appears to have symptomatic bradycardia. I am unsure at this time if this is ischemic related or sick sinus syndrome. She will be started on isosorbide mononitrate and we will discuss treatment tomorrow. Congestive heart failure - Patient is currently euvolemic. Hold Lasix tonight and follow blood pressures while on isosorbide mononitrate - Daily weights and strict I's and O's. If she gains weight we will restart Lasix. Chronic renal insufficiency - Patient's creatinine is stable at 1.6. Continue to monitor every morning Syncope - likely secondary to bradycardia Depression - Continue Prozac VTE prophylaxis with heparin
[2019-01-20] MEDS: Sodium Chloride 0.9% 1,000 ML IV SCH (20:45)
[2019-01-20] MEDS: Isosorbide Mononitrate 30 MG Tab.ER PO SCH (20:55)
[2019-01-20] MEDS: Aspirin 325 MG Tab.EC PO SCH (20:55)
[2019-01-20] MEDS: Heparin Sodium 5,000 Units/ML Vial SUBCUT SCH (20:58)
[2019-01-21] MEDS: Heparin Sodium 5,000 Units/ML Vial SUBCUT SCH ×2 (05:09→11:57)
[2019-01-21] MEDS: Sodium Chloride 0.9% 1,000 ML IV SCH (05:10)
[2019-01-21] MEDS ORDERED: Pantoprazole 40 MG Tab.CR PO SCH (06:00)
[2019-01-21] MEDS: Aspirin 325 MG Tab.EC PO SCH (09:08)
[2019-01-21] MEDS: Isosorbide Mononitrate 30 MG Tab.ER PO SCH (09:09)
--- NOTE | 2019-01-21 10:04 | PCM.DCSUM1 ---
Discharge Summary - Hospital Course HPI Initial Comments: 78-year-old female presents to the emergency room after having a recurrent bout of chest pain. Patient had chest pain this morning as she was waking up and was found to have a low pulse and blood pressure. Patient lives at [facility] and nursing found her to be bradycardic with a pulse of 41. She states the pain was heavy like bricks were on her chest. She denies any radiation. EMS was called and she was given nitroglycerin and aspirin in route to the emergency room. Symptoms resolved with nitroglycerin. She states that she has had a similar episode in the past. She has been having chest pains now for months. She was seen in the emergency room yesterday when she was walking down the [place] and everything turned marx and she fell down. She walked approximately 5 or 6 steps. At that time when nursing arrived her pulse was 34 and she has a low blood pressure. We are evaluating her at the request of the emergency room physician who spoke with cardiology in [place]. Cardiology would like her monitored on the floor with telemetry and given isosorbide mononitrate 30 mg. This will help determine if she is having bradycardia secondary to ischemia or sick sinus syndrome. Diagnosis: Stroke: No - Discharge Data Discharge Date: 01/21/19 Discharge Disposition: DC/Tfer to Acute Hospital 02 Condition: Fair - Discharge Diagnosis/Problem(s) (1) Bradycardia SNOMED Code(s): 24159280 ICD Code: R00.1 - BRADYCARDIA, UNSPECIFIED Status: Acute Current Visit: Yes (2) Chest pain SNOMED Code(s): 66596887 ICD Code: R07.9 - CHEST PAIN, UNSPECIFIED Status: Acute Current Visit: Yes (3) CKD (chronic kidney disease) SNOMED Code(s): 505902594 ICD Code: N18.9 - CHRONIC KIDNEY DISEASE, UNSPECIFIED Status: Chronic Priority: Medium Current Visit: No Qualifiers: Chronic kidney disease stage: unspecified stage Qualified Code(s): N18.9 - Chronic kidney disease, unspecified (4) Diastolic heart failure SNOMED Code(s): 921209544 ICD Code: I50.30 - UNSPECIFIED DIASTOLIC (CONGESTIVE) HEART FAILURE Status : Chronic Priority: Medium Current Visit: No Problem Details: Echo with normal EF but mild diastolic dysfunction; peripheral edema Qualifiers: Heart failure chronicity: acute on chronic Qualified Code(s): I50.33 - Acute on chronic diastolic (congestive) heart failure - Patient Instructions Diet: Heart Healthy Diet Activity: Bedrest - Discharge Plan *PRESCRIPTION DRUG MONITORING PROGRAM REVIEWED*: No *COPY OF PRESCRIPTION DRUG MONITORING REPORT IN PATIENT ANAHI: No Home Medications: Home Meds FLUoxetine HCl [Fluoxetine HCl] 40 mg PO DAILY 01/20/19 [History] Acetaminophen [Tylenol] 650 mg PO Q4H PRN tablet 01/21/19 [Rx] Albuterol/Ipratropium [DuoNeb 3.0-0.5 MG/3 ML] 3 ml NEB Q4H PRN neb 01/21/19 [ Rx] Aspirin [Ecotrin] 325 mg PO DAILY tab.ec 01/21/19 [Rx] Heparin Sodium 5,000 units SUBCUT Q8H vial 01/21/19 [Rx] Isosorbide Mononitrate [Imdur] 30 mg PO DAILY tab.er 01/21/19 [Rx] Ondansetron [Zofran] 4 mg IV Q6H PRN vial 01/21/19 [Rx] Pantoprazole [ProTONIX] 40 mg PO ACBRK tab.cr 01/21/19 [Rx] Sodium Chloride 0.9% [Normal Saline] 100 ml IV ASDIRECTED bag 01/21/19 [Rx] Temazepam [Restoril] 15 mg PO BEDTIME PRN cap 01/21/19 [Rx] Oxygen Therapy Mode: Nasal Cannula Oxygen Flow Rate (L/min): 2 Maintain SpO2% greater than: 90 Forms: ED Department Discharge Referrals: Celestino Vázquez MD [Primary Care Provider] - - Discharge Summary/Plan Comment DC Time >30 min.: Yes - General Info Date of Service: 01/21/19 Admission Dx/Problem (Free Text: Admission Diagnosis/Problem Admission Diagnosis/Problem Chest pain, rule out acute myocardial infarction Subjective Update: 78-year-old female presents to the emergency room after having a recurrent bout of chest pain. Patient had chest pain this morning as she was waking up and was found to have a low pulse and blood pressure. Patient lives at [facility] and nursing found her to be bradycardic with a pulse of 41. She states the pain was heavy like bricks were on her chest. She denies any radiation. EMS was called and she was given nitroglycerin and aspirin in route to the emergency room. Symptoms resolved with nitroglycerin. She states that she has had a similar episode in the past. She has been having chest pains now for months. She was seen in the emergency room yesterday when she was walking down the [place] and everything turned marx and she fell down. She walked approximately 5 or 6 steps. At that time when nursing arrived her pulse was 34 and she has a low blood pressure. We are evaluating her at the request of the emergency room physician who spoke with cardiology in [place]. Cardiology would like her monitored on the floor with telemetry and given isosorbide mononitrate 30 mg. This will help determine if she is having bradycardia secondary to ischemia or sick sinus syndrome. Overnight patient had bradycardia into the 30s with hypotension of 90/30. Patient also developed hypoxia while she was sleeping and her oxygen saturations dropped into the 80s requiring supplemental oxygen. Patient continues to have her heart rate in the upper 40s. She is asymptomatic at this time without chest pain, shortness of breath, PND, or orthopnea. She does have some mild peripheral edema which is chronic. Patient is in agreement with transfer to [place] for higher level of care and cardiology support. - Review of Systems General: Reports: Weakness HEENT: Reports: No Symptoms Pulmonary: Reports: No Symptoms Cardiovascular: Reports: Edema. Denies: Chest Pain, Palpitations Gastrointestinal: Reports: No Symptoms - Patient Data Vitals - Most Recent: Last Vital Signs Temp 98.2 F 01/21/19 05:12 Pulse 48 L 01/21/19 01:45 Resp 17 01/21/19 05:12 BP 127/52 L 01/21/19 09:09 Pulse Ox 100 01/21/19 01:45 Weight - Most Recent: 176 lb 8 oz I&O - Last 24 hours: Intake & Output 01/20/19 01/21/19 01/21/19 22:59 06:59 14:59 Intake Total 1122 Balance 1122 Lab Results - Last 24 hrs: Laboratory Results - last 24 hr 01/20/19 01/20/19 01/20/19 Range/Units 15:24 15:24 15:24 WBC 5.65 (3.98-10.04) K/mm3 RBC 3.62 L (3.98-5.22) M/mm3 Hgb 10.9 L (11.2-15.7) gm/L Hct 32.7 L (34.1-44.9) % MCV 90.3 (79.4-94.8) fl MCH 30.1 (25.6-32.2) pg MCHC 33.3 (32.2-35.5) g/dl RDW Std Deviation 44.0 (36.4-46.3) fL Plt Count 207 (182-369) K/mm3 MPV 10.1 (9.4-12.3) fl Neut % (Auto) (34.0-71.1) % Lymph % (Auto) (19.3-51.7) % Randall % (Auto) (4.7-12.5) % Eos % (Auto) (0.7-5.8) Baso % (Auto) (0.1-1.2) % Neut # (Auto) (1.56-6.13) K/mm3 Lymph # (Auto) (1.18-3.74) K/mm3 Randall # (Auto) (0.24-0.36) K/mm3 Eos # (Auto) (0.04-0.36) K/mm3 Baso # (Auto) (0.01-0.08) K/mm3 Neutrophils % (Manual) 67 H (40-60) % Band Neutrophils % 0 (0-10) % Lymphocytes % (Manual) 28 (20-40) % Atypical Lymphs % 0 % Monocytes % (Manual) 3 (2-10) % Eosinophils % (Manual) 2 (0.7-5.8) % Basophils % (Manual) 0 L (0.1-1.2) Platelet Estimate Adequate RBC Morph Comment Normal PT (9.5-12.1) SECONDS INR APTT (24-31) SECONDS Sodium 143 (136-145) mEq/L Potassium 3.7 (3.5-5.1) mEq/L Chloride 105 (98-107) mEq/L Carbon Dioxide 29 (21-32) mEq/L Anion Gap 12.7 (5-15) BUN 15 (7-18) mg/dL Creatinine 1.6 H (0.55-1.02) mg/dL Est Cr Clr Drug Dosing 23.29 mL/min Estimated GFR (MDRD) 31 (>60) mL/min BUN/Creatinine Ratio 9.4 L (14-18) Glucose 103 (83-115) mg/dL Calcium 8.6 (8.5-10.1) mg/dL Phosphorus (2.6-4.7) mg/dL Magnesium 2.2 (1.8-2.4) mg/dl Total Bilirubin 0.3 (0.2-1.0) mg/dL AST 14 L (15-37) U/L ALT 24 (14-59) U/L Alkaline Phosphatase 67 (46-116) U/L Troponin I < 0.017 (0.00-0.056) ng/mL Total Protein 6.2 L (6.4-8.2) g/dl Albumin 3.1 L (3.4-5.0) g/dl Globulin 3.1 gm/dL Albumin/Globulin Ratio 1.0 (1-2) TSH 3rd Generation (0.358-3.74) uIU/mL Urine Color (Yellow) Urine Appearance (Clear) Urine pH (5.0-8.0) Ur Specific [place] (1.005-1.030) Urine Protein (Negative) Urine Glucose (UA) (Negative) Urine Ketones (Negative) Urine Occult Blood (Negative) Urine Nitrite (Negative) Urine Bilirubin (Negative) Urine Urobilinogen (0.2-1.0) Ur Leukocyte Esterase (Negative) Urine RBC (0-5) /hpf Urine WBC (0-5) /hpf Ur Epithelial Cells (0-5) /hpf Urine Bacteria (FEW) /hpf Urine Mucus (FEW) /hpf MRSA (PCR) 01/20/19 01/20/19 01/20/19 Range/Units 16:35 21:15 23:00 WBC (3.98-10.04) K/mm3 RBC (3.98-5.22) M/mm3 Hgb (11.2-15.7) gm/L Hct (34.1-44.9) % MCV (79.4-94.8) fl MCH (25.6-32.2) pg MCHC (32.2-35.5) g/dl RDW Std Deviation (36.4-46.3) fL Plt Count (182-369) K/mm3 MPV (9.4-12.3) fl Neut % (Auto) (34.0-71.1) % Lymph % (Auto) (19.3-51.7) % Randall % (Auto) (4.7-12.5) % Eos % (Auto) (0.7-5.8) Baso % (Auto) (0.1-1.2) % Neut # (Auto) (1.56-6.13) K/mm3 Lymph # (Auto) (1.18-3.74) K/mm3 Randall # (Auto) (0.24-0.36) K/mm3 Eos # (Auto) (0.04-0.36) K/mm3 Baso # (Auto) (0.01-0.08) K/mm3 Neutrophils % (Manual) (40-60) % Band Neutrophils % (0-10) % Lymphocytes % (Manual) (20-40) % Atypical Lymphs % % Monocytes % (Manual) (2-10) % Eosinophils % (Manual) (0.7-5.8) % Basophils % (Manual) (0.1-1.2) Platelet Estimate RBC Morph Comment PT (9.5-12.1) SECONDS INR APTT (24-31) SECONDS Sodium (136-145) mEq/L Potassium (3.5-5.1) mEq/L Chloride (98-107) mEq/L Carbon Dioxide (21-32) mEq/L Anion Gap (5-15) BUN (7-18) mg/dL Creatinine (0.55-1.02) mg/dL Est Cr Clr Drug Dosing mL/min Estimated GFR (MDRD) (>60) mL/min BUN/Creatinine Ratio (14-18) Glucose (83-115) mg/dL Calcium (8.5-10.1) mg/dL Phosphorus (2.6-4.7) mg/dL Magnesium (1.8-2.4) mg/dl Total Bilirubin (0.2-1.0) mg/dL AST (15-37) U/L ALT (14-59) U/L Alkaline Phosphatase (46-116) U/L Troponin I < 0.017 (0.00-0.056) ng/mL Total Protein (6.4-8.2) g/dl Albumin (3.4-5.0) g/dl Globulin gm/dL Albumin/Globulin Ratio (1-2) TSH 3rd Generation (0.358-3.74) uIU/mL Urine Color Yellow (Yellow) Urine Appearance Clear (Clear) Urine pH 7.0 (5.0-8.0) Ur Specific [place] 1.015 (1.005-1.030) Urine Protein Negative (Negative) Urine Glucose (UA) Negative (Negative) Urine Ketones Negative (Negative) Urine Occult Blood Negative (Negative) Urine Nitrite Negative (Negative) Urine Bilirubin Negative (Negative) Urine Urobilinogen 0.2 (0.2-1.0) Ur Leukocyte Esterase Trace H (Negative) Urine RBC 0-5 (0-5) /hpf Urine WBC 5-10 H (0-5) /hpf Ur Epithelial Cells 0-5 (0-5) /hpf Urine Bacteria Few (FEW) /hpf Urine Mucus Not seen (FEW) /hpf MRSA (PCR) Negative 01/21/19 01/21/19 01/21/19 Range/Units 04:05 04:05 04:05 WBC 4.99 (3.98-10.04) K/mm3 RBC 3.24 L (3.98-5.22) M/mm3 Hgb 9.6 L (11.2-15.7) gm/L Hct 29.8 L (34.1-44.9) % MCV 92.0 (79.4-94.8) fl MCH 29.6 (25.6-32.2) pg MCHC 32.2 (32.2-35.5) g/dl RDW Std Deviation 45.0 (36.4-46.3) fL Plt Count 172 L (182-369) K/mm3 MPV 10.0 (9.4-12.3) fl Neut % (Auto) 55.1 (34.0-71.1) % Lymph % (Auto) 33.7 (19.3-51.7) % Randall % (Auto) 7.6 (4.7-12.5) % Eos % (Auto) 3.2 (0.7-5.8) Baso % (Auto) 0.2 (0.1-1.2) % Neut # (Auto) 2.75 (1.56-6.13) K/mm3 Lymph # (Auto) 1.68 (1.18-3.74) K/mm3 Randall # (Auto) 0.38 H (0.24-0.36) K/mm3 Eos # (Auto) 0.16 (0.04-0.36) K/mm3 Baso # (Auto) 0.01 (0.01-0.08) K/mm3 Neutrophils % (Manual) (40-60) % Band Neutrophils % (0-10) % Lymphocytes % (Manual) (20-40) % Atypical Lymphs % % Monocytes % (Manual) (2-10) % Eosinophils % (Manual) (0.7-5.8) % Basophils % (Manual) (0.1-1.2) Platelet Estimate RBC Morph Comment PT 11.5 (9.5-12.1) SECONDS INR 1.06 APTT 29 (24-31) SECONDS Sodium (136-145) mEq/L Potassium (3.5-5.1) mEq/L Chloride (98-107) mEq/L Carbon Dioxide (21-32) mEq/L Anion Gap (5-15) BUN (7-18) mg/dL Creatinine (0.55-1.02) mg/dL Est Cr Clr Drug Dosing mL/min Estimated GFR (MDRD) (>60) mL/min BUN/Creatinine Ratio (14-18) Glucose (83-115) mg/dL Calcium (8.5-10.1) mg/dL Phosphorus (2.6-4.7) mg/dL Magnesium (1.8-2.4) mg/dl Total Bilirubin (0.2-1.0) mg/dL AST (15-37) U/L ALT (14-59) U/L Alkaline Phosphatase (46-116) U/L Troponin I < 0.017 (0.00-0.056) ng/mL Total Protein (6.4-8.2) g/dl Albumin (3.4-5.0) g/dl Globulin gm/dL Albumin/Globulin Ratio (1-2) TSH 3rd Generation (0.358-3.74) uIU/mL Urine Color (Yellow) Urine Appearance (Clear) Urine pH (5.0-8.0) Ur Specific [place] (1.005-1.030) Urine Protein (Negative) Urine Glucose (UA) (Negative) Urine Ketones (Negative) Urine Occult Blood (Negative) Urine Nitrite (Negative) Urine Bilirubin (Negative) Urine Urobilinogen (0.2-1.0) Ur Leukocyte Esterase (Negative) Urine RBC (0-5) /hpf Urine WBC (0-5) /hpf Ur Epithelial Cells (0-5) /hpf Urine Bacteria (FEW) /hpf Urine Mucus (FEW) /hpf MRSA (PCR) 01/21/19 Range/Units 04:05 WBC (3.98-10.04) K/mm3 RBC (3.98-5.22) M/mm3 Hgb (11.2-15.7) gm/L Hct (34.1-44.9) % MCV (79.4-94.8) fl MCH (25.6-32.2) pg MCHC (32.2-35.5) g/dl RDW Std Deviation (36.4-46.3) fL Plt Count (182-369) K/mm3 MPV (9.4-12.3) fl Neut % (Auto) (34.0-71.1) % Lymph % (Auto) (19.3-51.7) % Randall % (Auto) (4.7-12.5) % Eos % (Auto) (0.7-5.8) Baso % (Auto) (0.1-1.2) % Neut # (Auto) (1.56-6.13) K/mm3 Lymph # (Auto) (1.18-3.74) K/mm3 Randall # (Auto) (0.24-0.36) K/mm3 Eos # (Auto) (0.04-0.36) K/mm3 Baso # (Auto) (0.01-0.08) K/mm3 Neutrophils % (Manual) (40-60) % Band Neutrophils % (0-10) % Lymphocytes % (Manual) (20-40) % Atypical Lymphs % % Monocytes % (Manual) (2-10) % Eosinophils % (Manual) (0.7-5.8) % Basophils % (Manual) (0.1-1.2) Platelet Estimate RBC Morph Comment PT (9.5-12.1) SECONDS INR APTT (24-31) SECONDS Sodium 144 (136-145) mEq/L Potassium 3.6 (3.5-5.1) mEq/L Chloride 109 H (98-107) mEq/L Carbon Dioxide 31 (21-32) mEq/L Anion Gap 7.6 (5-15) BUN 17 (7-18) mg/dL Creatinine 1.5 H (0.55-1.02) mg/dL Est Cr Clr Drug Dosing 24.84 mL/min Estimated GFR (MDRD) 34 (>60) mL/min BUN/Creatinine Ratio 11.3 L (14-18) Glucose 98 (83-115) mg/dL Calcium 7.9 L (8.5-10.1) mg/dL Phosphorus 4.3 (2.6-4.7) mg/dL Magnesium 2.1 (1.8-2.4) mg/dl Total Bilirubin 0.3 (0.2-1.0) mg/dL AST 14 L (15-37) U/L ALT 20 (14-59) U/L Alkaline Phosphatase 55 (46-116) U/L Troponin I (0.00-0.056) ng/mL Total Protein 5.2 L (6.4-8.2) g/dl Albumin 2.6 L (3.4-5.0) g/dl Globulin 2.6 gm/dL Albumin/Globulin Ratio 1.0 (1-2) TSH 3rd Generation 1.591 (0.358-3.74) uIU/mL Urine Color (Yellow) Urine Appearance (Clear) Urine pH (5.0-8.0) Ur Specific [place] (1.005-1.030) Urine Protein (Negative) Urine Glucose (UA) (Negative) Urine Ketones (Negative) Urine Occult Blood (Negative) Urine Nitrite (Negative) Urine Bilirubin (Negative) Urine Urobilinogen (0.2-1.0) Ur Leukocyte Esterase (Negative) Urine RBC (0-5) /hpf Urine WBC (0-5) /hpf Ur Epithelial Cells (0-5) /hpf Urine Bacteria (FEW) /hpf Urine Mucus (FEW) /hpf MRSA (PCR) Med Orders - Current: Current Medications Acetaminophen (Tylenol) 650 mg PO Q4H PRN PRN Reason: Pain/Fever Albuterol/Ipratropium (Duoneb 3.0-0.5 Mg/3 Ml) 3 ml NEB Q4H PRN PRN Reason: SOB/wheezing Aspirin (Ecotrin) 325 mg PO DAILY [facility] Last Admin: 03/09/19 09:08 Dose: 325 mg Fluoxetine HCl (Prozac) 20 mg PO DAILY [facility] Heparin Sodium (Porcine) (Heparin Sodium) 5,000 units SUBCUT Q8H [facility] Last Admin: 01/21/19 05:09 Dose: 5,000 units Sodium Chloride (Normal Saline) 1,000 mls @ 100 mls/hr IV ASDIRECTED [facility] Last Admin: 01/21/19 05:10 Dose: 100 mls/hr Isosorbide Mononitrate (Imdur) 30 mg PO DAILY [facility] Last Admin: 01/21/19 09:09 Dose: 30 mg Ondansetron HCl (Zofran) 4 mg IV Q6H PRN PRN Reason: Nausea/Vomiting Pantoprazole Sodium (Protonix) 40 mg PO ACBRK [facility] Last Admin: 01/21/19 05:09 Dose: 40 mg Temazepam (Restoril) 15 mg PO BEDTIME PRN PRN Reason: Sleep Last Admin: 01/20/19 21:07 Dose: 15 mg Discontinued Medications Acetaminophen (Tylenol) 650 mg PO NOW ONE Stop: 01/20/19 17:08 Last Admin: 01/20/19 17:41 Dose: 650 mg - Exam Quality Assessment: Reports: Supplemental Oxygen General: Reports: Alert, Oriented HEENT: Reports: Mucous Membr. Moist/[place] Neck: Reports: Supple Lungs: Reports: Clear to Auscultation, Normal Respiratory Effort Cardiovascular: Reports: Regular Rhythm GI/Abdominal Exam: Normal Bowel Sounds, Soft, Non-Tender Back Exam: Reports: Normal Inspection Extremities: Pedal Edema Skin: Reports: Warm, Dry
[2019-01-21] MEDS ORDERED: FLUoxetine 20 MG Cap PO SCH (10:45)
[2019-01-21 13:50] VITALS: BP 132/62
--- NOTE | 2019-01-23 08:14 | CR ---
Chest: Frontal view of the chest was obtained utilizing portable technique. Comparison: Prior chest x-ray of 01/19/19. Heart size and mediastinum are normal. Lungs are clear without acute parenchymal change. Slight scarring is noted within the lateral left costophrenic angle. Bony structures are grossly intact. Impression: 1. Nothing acute is seen on portable chest x-ray. Diagnostic code #2
== END 2019-01-21 13:05 ==
LOC: JD.ED 14:34 → SUPCPDRO 14:34 → JD.MS 19:32
PROVIDERS: ADMIT Family Medicine; ATTEND Family Medicine
DX: R07.9 Chest pain, unspecified (principal); R00.1 Bradycardia, unspecified; R55 Syncope and collapse; N18.9 Chronic kidney disease, unspecified; I50.33 Acute on chronic diastolic (congestive) heart failure; J44.9 Chronic obstructive pulmonary disease, unspecified; E66.9 Obesity, unspecified; Z68.31 Body mass index [BMI] 31.0-31.9, adult; F32.9 Major depressive disorder, single episode, unspecified; Z79.82 Long term (current) use of aspirin; Z79.899 Other long term (current) drug therapy
CPT/HCPCS: 36415; 71045; 80053; 81001; 83735; 84100; 84443; 84484; 85007; 85025; 85027; 85610; 85730; 87641; 93005; 94760; 94762; 99285; A9270; J1644; J7040; 93010; 96360; 96361; 96372; G0378

== ENCOUNTER 2020-09-04 08:54 | Day surgery (SDC) | payer MEDICARE, BC, MEDICAID ==
[~2020-09-04 08:54] MED LIST: Lactated Ringers 1,000 ML IV SCH; Lidocaine 1%/Sod Bicarbonate in NS 8.4% 1 ML Syringe IDERM PRN; Sodium Chloride 0.9% 10 ML Syringe FLUSH PRN
--- NOTE | 2020-09-04 10:02 | PCM.PREANE ---
Preanesthetic Assessment - Procedure Proposed Procedure: egd - Anesthesia/Transfusion/Family Hx Type of Anesthesia Reaction: Excessive Nausea/Vomiting Family History of Anesthesia Reaction: No Transfusion History: Unknown - Review of Systems General: No Symptoms Pulmonary: Shortness of Breath (with activity) Cardiovascular: Chest Pain (pushing furniture, standing too long, intermittent pain), Dyspnea on Exertion Gastrointestinal: Abdominal Pain Neurological: No Symptoms Other: Reports: Depression, Anxiety - Physical Assessment NPO Status Date: 09/03/20 NPO Status Time: 17:00 Vital Signs: Last Vital Signs Temp 99.0 F 09/04/20 09:10 Pulse 71 09/04/20 09:10 Resp 20 09/04/20 09:10 BP 184/85 H 09/04/20 09:20 Pulse Ox 95 09/04/20 09:10 Height: 5 ft 3 in Weight: 92 kg ASA Class: 3 Mental Status: Alert & Oriented x3 Airway Class: Mallampati = 1 Dentition: Reports: Broken Tooth/Teeth, Missing Tooth/Teeth, Caries Thyro-Mental Finger Breadths: 3 Mouth Opening Finger Breadths: 3 ROM/Head Extension: Full Lungs: Clear to Auscultation, Normal Respiratory Effort Cardiovascular: Regular Rate, Regular Rhythm - Allergies Allergies/Adverse Reactions: Allergies Allergy/AdvReac Type Severity Reaction Status Date / Time codeine AdvReac Nausea and Verified 09/03/20 15:19 Vomiting Sulfa (Sulfonamide AdvReac Nausea and Verified 09/03/20 15:19 Antibiotics) Vomiting - Blood Blood Available: No - Acknowledgements Anesthesia Type Planned: MAC Pt an Appropriate Candidate for the Planned Anesthesia: Yes Alternatives and Risks of Anesthesia Discussed w Pt/Guardian: Yes Pt/Guardian Understands and Agrees with Anesthesia Plan: Yes PreAnesthesia Questionnaire HEENT History: Reports: Impaired Vision, Other (See Below) Other HEENT History: wears glasses Cardiovascular History: Reports: Heart Failure, Syncope Other Cardiovascular History: syncopal episode happening for awhile, states HR irregular 30-100 Respiratory History: Reports: Asthma, COPD Other Respiratory History: patient states she has had these episodes of shortness of breath her whole life; states she has always been told it was recurrent bronchitis, blood clots in legs when kids small Gastrointestinal History: Reports: GERD Genitourinary History: Reports: UTI, Recurrent PATIENT ACCESS ASSOCIATE History: Reports: Musculoskeletal History: Reports: Arthritis Neurological History: Reports: Migraines Psychiatric History: Reports: Depression Endocrine/Metabolic History: Reports: Obesity/BMI 30+ Hematologic History: Reports: Other (See Below) Other Hematologic History: frequent clots, blood clots in legs when her kids were little Immunologic History: Reports: None Oncologic (Cancer) History: Reports: None Dermatologic History: Reports: None - Infectious Disease History Infectious Disease History: Reports: Chicken Pox, Influenza, Measles, Mumps - Past Surgical History Head Surgeries/Procedures: Reports: None HEENT Surgical History: Reports: Oral Surgery, Tonsillectomy Cardiovascular Surgical History: Reports: None Respiratory Surgical History: Reports: None GI Surgical History: Reports: None Female Surgical History: Reports: Tubal Ligation Other Female Surgeries/Procedures: states she had her tubes tided "the old fashion way" Endocrine Surgical History: Reports: None Neurological Surgical History: Reports: None Musculoskeletal Surgical History: Reports: None Oncologic Surgical History: Reports: None Dermatological Surgical History: Reports: None - SUBSTANCE USE Tobacco Use Status *Q: Never Tobacco User Tobacco Use Within Last Twelve Months: No Second Hand Smoke Exposure: No Days Per Week of Alcohol Use: 0 Recreational Drug Use History: No - HOME MEDS Home Medications: Home Meds FLUoxetine HCl [Fluoxetine HCl] 40 mg PO DAILY 01/20/19 [History] Acetaminophen [Tylenol] 650 mg PO Q4H PRN tablet 01/21/19 [Rx] Albuterol/Ipratropium [DuoNeb 3.0-0.5 MG/3 ML] 3 ml NEB Q4H PRN neb 01/21/19 [Rx] Albuterol [Ventolin HFA] 1 puff INH TID PRN 09/03/20 [History] Cholecalciferol (Vitamin D3) [Vitamin D3] 3,000 unit PO DAILY 09/03/20 [History] Cranberry Fruit Extract [Cranberry] 200 mg PO BID 09/03/20 [History] Furosemide [Lasix] 20 mg PO DAILY 09/03/20 [History] Furosemide [Lasix] 40 mg PO DAILY 09/03/20 [History] Multivitamin 1 tab PO DAILY 09/03/20 [History] Omeprazole Magnesium [Prilosec Otc] 20 mg PO BID 09/03/20 [History] Potassium Chloride [Klor-Con] 20 meq PO DAILY 09/03/20 [History] Simethicone 80 mg PO DAILY 09/03/20 [History] busPIRone [Buspar] 10 mg PO BEDTIME 09/03/20 [History] guaiFENesin/Dextromethorphan [Tussin Dm Liquid] 5 ml PO Q4H PRN 09/03/20 [History] polyethylene glycoL 3350 [MiraLAX] 1 dose PO DAILY PRN 09/03/20 [History] - CURRENT (IN HOUSE) MEDS Current Meds: Current Medications Lactated Ringer's (Ringers, Lactated) 1,000 mls @ 125 mls/hr IV ASDIRECTED [facility] Stop: 09/04/20 23:00 Lidocaine/Sodium Bicarbonate (Buffered Lidocaine 1% In Ns 8.4%) 0.25 ml IDERM ONETIME PRN PRN Reason: Prior to IV Start Stop: 09/04/20 18:00 Sodium Chloride (Saline Flush) 10 ml FLUSH ASDIRECTED PRN PRN Reason: Keep Vein Open Stop: 09/04/20 18:00
[2020-09-04] MEDS ORDERED: Propofol 200 MG/20 ML SDV ONE (10:34)
--- NOTE | 2020-09-04 11:05 | PCM48HPAN ---
Post Anesthesia Note - EVALUATION WITHIN 48HRS OF ANESTHETIC Vital Signs in Normal Range: Yes Patient Participated in Evaluation: Yes Respiratory Function Stable: Yes Airway Patent: Yes Cardiovascular Function Stable: Yes Hydration Status Stable: Yes Pain Control Satisfactory: Yes Nausea and Vomiting Control Satisfactory: Yes Mental Status Recovered: Yes Vital Signs: Last Vital Signs Temp 37.2 C 09/04/20 09:10 Pulse 71 09/04/20 09:10 Resp 20 09/04/20 09:10 BP 157/83 H 09/04/20 09:55 Pulse Ox 95 09/04/20 09:10
--- NOTE | 2020-09-04 11:13 | PCM.OPNOTE ---
- General Post-Op/Procedure Note Date of Surgery/Procedure: 09/04/20 Operative Procedure(s): EGD Findings: 1. Sliding Hiatal hernia 2cm 2. Gastritis 3. Superficial gastric erosion 4. Gastric polyps 5. Duodenal polyps Pre Op Diagnosis: epigastric abdominal pain Post-Op Diagnosis: same Anesthesia Technique: MAC Primary Surgeon: Daria Turner Anesthesia Provider: Bailey Andres Pathology: 1. Duodenal polyp biopsy 2. Antrum biopsy Fluid Replacement, Intraop: 400 EBL in mLs: 0 Complications: none apparent Condition: Good
--- NOTE | 2020-09-04 11:19 | PCM.PRNOTE ---
- Free Text/Narrative Note: Operative Report Date of procedure: September 04, 2020 Preoperative diagnosis: epigastric abdominal pain Postoperative diagnosis: same Surgeon: Daria Turner M.D. Procedure: EGD Anesthesia: MAC Cell Repairer: Dmitry Avalos CRNA IV fluids: 400 mL Estimated blood loss: 0 mL Findings: 1. Sliding Hiatal hernia 2cm 2. Gastritis 3. Superficial gastric erosion 4. Gastric polyps 5. Duodenal polyps Specimens: 1. Duodenal polyp biopsy 2. Antral biopsy Indication: The patient is a 80 -year-old lady who presented with continued abdominal pain despite medical therapy, as well as early satiety. The patient's main complaint was her abdominal pain. The patient was consented for an EGD. Risk of perforation was discussed. The patient's consent was obtained Description of the procedure: The patient was taken to the endoscopy suite and placed on hemodynamic monitoring. The nurse sales representative [employer] induced MAC anesthesia. A bite block was placed. The patient was positioned in the left lateral decubitus position. A timeout was performed. The endoscope was gently placed into the mouth to the back of the pharynx and introduced into the esophagus. The scope was gently advanced under direct visualization down to the level of the lower esophageal sphincter. A hiatal hernia was seen immediately. The Z-line was regular and noted at 39 cm from the mouth. The stomach was then entered. Normal rugal folds were noted. The scope was advanced into the antrum. The pylorus was then entered and the first and second portion of the duodenum was inspected. We did note some duodenal polyps in the duodenal bulb. These were biopsied using cold biopsy forceps.. There were no ulcerations in the duodenum. The antrum was then inspected and had some erythema consistent with gastritis. Biopsies were taken in the antrum using cold biopsy forceps. The scope was then retroflexed in the cardia and fundus w ere investigated. There was a superficial erosion noted in the body of the stomach. Additional scattered gastric polyps measuring 1 to 2 mm were noted throughout the body of the stomach. The scope was withdrawn towards the esophagus. The hiatal hernia was again seen and measured at 2 cm. No other abnormalities were noted. The scope was then withdrawn while inspecting the esophagus. There was no esophagitis. The procedure was terminated. the patient tolerated the procedure well without any evidence of complications. Daria Turner MD General Surgery
[2020-09-04 11:57] VITALS: BP 144/81; PULSE 70
== END 2020-09-04 11:40 | disposition home or self-care (01) ==
LOC: JD.SDS 08:54
PROVIDERS: ATTEND Surgery
DX: K31.7 Polyp of stomach and duodenum (principal); K44.9 Diaphragmatic hernia without obstruction or gangrene; K25.9 Gastric ulcer, unspecified as acute or chronic, without hemorrhage or perforation; K29.70 Gastritis, unspecified, without bleeding; G47.33 Obstructive sleep apnea (adult) (pediatric); F32.9 Major depressive disorder, single episode, unspecified; E78.5 Hyperlipidemia, unspecified; E66.9 Obesity, unspecified; I50.9 Heart failure, unspecified; Z88.5 Allergy status to narcotic agent; Z88.2 Allergy status to sulfonamides; Z95.0 Presence of cardiac pacemaker; Z79.899 Other long term (current) drug therapy; Z98.890 Other specified postprocedural states; Z68.38 Body mass index [BMI] 38.0-38.9, adult
CPT/HCPCS: 43239; J2704; J7120; 00731

== ENCOUNTER 2022-10-10 05:49 | Inpatient (IN) | payer MEDICARE, BC, MEDICAID ==
[2022-10-10] MEDS ORDERED: HYDROmorphone 1 MG/ML Syringe IVPUSH STA (06:38)
[2022-10-10] MEDS ORDERED: Ondansetron 4 MG/2 ML SDV IVPUSH ONE (06:38)
[2022-10-10] MEDS ORDERED: Sodium Chloride 0.9% 1,000 ML IV SCH (06:45)
[2022-10-10 07:32] LABS: ESTIMATED GFR 38 mL/min (>60)
[2022-10-10] MEDS ORDERED: Metoclopramide 10 MG/2 ML SDV IVPUSH ONE (08:35)
[2022-10-10] MEDS ORDERED: Iopamidol 612 MG/ML 100 ML Bottle IVPUSH ONE (08:53)
[2022-10-10] MEDS ORDERED: Piperacillin/Tazobactam 4.5 GM in Sodium Chloride 0.9% 100 ML IV ONE (11:17)
[2022-10-10] MEDS: Ursodiol 300 MG Cap PO SCH ×2 (12:13→17:00)
[2022-10-10] MEDS ORDERED: Lidocaine 1% 6 ML ONE (14:02)
[2022-10-10] MEDS ORDERED: Midazolam 1 MG/ML 2 ML SDV ONE (14:02)
[2022-10-10] MEDS ORDERED: fentaNYL 100 MCG/2 ML SDV ONE (14:02)
[2022-10-10] MEDS ORDERED: Propofol 200 MG/20 ML SDV ONE (14:04)
[2022-10-10] MEDS ORDERED: Rocuronium 50 MG/5 ML Vial ONE (14:13)
[2022-10-10] MEDS ORDERED: Succinylcholine 200 MG/10 ML MDV ONE (14:13)
[2022-10-10] MEDS ORDERED: HYDROmorphone 0.5 MG/0.5 ML Syringe IVPUSH PRN ×2 (14:18→17:05)
[2022-10-10] MEDS ORDERED: fentaNYL 100 MCG/2 ML SDV IVPUSH PRN (14:18)
[2022-10-10] MEDS ORDERED: Phenylephrine HCl In 0.9% NaCl 1 MG/10 ML Vial ONE (14:43)
[2022-10-10] MEDS: Bupivacaine 0.5%/EPINEPHrine 1:200,000 50 ML MDV ONE ×2 (14:50→15:02)
[2022-10-10] MEDS: Lidocaine 1% 30 ML SDV ONE ×2 (14:50→15:03)
[2022-10-10] MEDS ORDERED: Sugammadex Sodium 200 MG/2 ML VIAL ONE (15:29)
[2022-10-10] MEDS ORDERED: Ondansetron 4 MG/2 ML SDV ONE (15:30)
[2022-10-10] MEDS: Albuterol 0.083% 2.5 MG/3 ML Neb Soln NEB PRN ×2 (16:21→22:56)
[2022-10-10] MEDS ORDERED: guaiFENesin/Dextromethorphan 100-10 MG/5 ML Soln 5 ML Cup PO PRN (16:45)
[2022-10-10] MEDS ORDERED: Ondansetron 4 MG/2 ML SDV IVPUSH PRN (16:50)
[2022-10-10] MEDS ORDERED: Lactated Ringers 1,000 ML IV SCH (17:00)
[2022-10-10] MEDS: Acetaminophen 325 MG Tab PO PRN (19:50)
[2022-10-10] MEDS: oxyCODONE 5 MG Tab PO PRN (19:51)
[2022-10-10] MEDS: busPIRone 5 MG Tab PO SCH (20:26)
[2022-10-11] MEDS: oxyCODONE 5 MG Tab PO PRN ×4 (01:15→19:19)
[2022-10-11] MEDS: Ursodiol 300 MG Cap PO SCH ×2 (07:37→17:11)
[2022-10-11] MEDS ORDERED: Albuterol/Ipratropium 3.0-0.5 MG/3 ML Neb Soln NEB SCH (08:00)
[2022-10-11] MEDS: Albuterol/Ipratropium 3.0-0.5 MG/3 ML Neb Soln NEB SCH ×4 (08:40→19:57)
[2022-10-11] MEDS: FLUoxetine 20 MG Cap PO SCH (09:00)
[2022-10-11] MEDS: Furosemide 40 MG Tab PO SCH (09:00)
[2022-10-11] MEDS: Pantoprazole 40 MG Tab.CR PO SCH ×2 (09:00→21:54)
[2022-10-11] MEDS: Acetaminophen 325 MG Tab PO PRN ×2 (09:00→19:20)
[2022-10-11] MEDS: Heparin Sodium 5,000 Units/ML Vial SUBCUT SCH (21:28)
[2022-10-11] MEDS: busPIRone 5 MG Tab PO SCH (21:54)
[2022-10-12] MEDS: Albuterol/Ipratropium 3.0-0.5 MG/3 ML Neb Soln NEB SCH ×6 (00:17→21:10)
[2022-10-12] MEDS: Acetaminophen 325 MG Tab PO PRN ×4 (01:57→23:31)
[2022-10-12] MEDS: oxyCODONE 5 MG Tab PO PRN ×3 (01:57→19:04)
[2022-10-12] MEDS: Heparin Sodium 5,000 Units/ML Vial SUBCUT SCH ×3 (05:11→20:07)
[2022-10-12] MEDS: Ursodiol 300 MG Cap PO SCH ×2 (06:33→17:25)
[2022-10-12] MEDS: Pantoprazole 40 MG Tab.CR PO SCH ×2 (08:52→20:08)
[2022-10-12] MEDS: FLUoxetine 20 MG Cap PO SCH (08:53)
[2022-10-12] MEDS: Furosemide 40 MG Tab PO SCH (09:27)
[2022-10-12] MEDS: busPIRone 5 MG Tab PO SCH (20:09)
[2022-10-13] MEDS: oxyCODONE 5 MG Tab PO PRN (01:07)
[2022-10-13] MEDS: Heparin Sodium 5,000 Units/ML Vial SUBCUT SCH (04:52)
[2022-10-13] MEDS: Ursodiol 300 MG Cap PO SCH (07:53)
[2022-10-13] MEDS: Acetaminophen 325 MG Tab PO PRN (07:53)
[2022-10-13 10:05] VITALS: BP 128/70; PULSE 42
== END 2022-10-13 10:30 | DRG 418 ==
LOC: JD.ED 05:49 → JD.SDS 14:06 → JD.MS 17:14 → UNDOADMOB 17:14 → JD.OB 17:14 → OBSVTOIN 10-12 13:33 → INTOOBSV 10-12 13:33 → UNDODISIN 10-13 10:30
PROVIDERS: ADMIT Surgery; ATTEND Surgery
PROC: 0FT44ZZ Resection of Gallbladder, Percutaneous Endoscopic Approach (ICD-10-PCS; principal; 2022-10-10)
DX: K80.00 Calculus of gallbladder with acute cholecystitis without obstruction (principal); I10 Essential (primary) hypertension; I13.0 Hypertensive heart and chronic kidney disease with heart failure and stage 1 through stage 4 chronic kidney disease, or unspecified chronic kidney disease; K21.9 Gastro-esophageal reflux disease without esophagitis; K82.1 Hydrops of gallbladder; I50.32 Chronic diastolic (congestive) heart failure; Z68.41 Body mass index [BMI] 40.0-44.9, adult; J44.9 Chronic obstructive pulmonary disease, unspecified; N18.30 Chronic kidney disease, stage 3 unspecified; H54.7 Unspecified visual loss; Z66 Do not resuscitate; Z20.822 Contact with and (suspected) exposure to COVID-19; F32.A Depression, unspecified; M19.90 Unspecified osteoarthritis, unspecified site; G47.33 Obstructive sleep apnea (adult) (pediatric); E66.9 Obesity, unspecified; Z88.5 Allergy status to narcotic agent; Z86.718 Personal history of other venous thrombosis and embolism; Z79.01 Long term (current) use of anticoagulants; Z88.2 Allergy status to sulfonamides; Z79.899 Other long term (current) drug therapy; Z95.0 Presence of cardiac pacemaker
CPT/HCPCS: 36415 ×3; 47562; 71045 ×2; 74177; 76705; 80048 ×2; 80053; 81001; 83690; 83735; 85007; 85025; 85027; 93005; 94640 ×8; 94762 ×2; 96365; 96372 ×2; 96375; 99285; A9270 ×25; G0378 ×4; J0330; J1170; J1644 ×3; J2250; J2405 ×2; J2543; J2704; J2765; J3010 ×2; J3490 ×2; J7030; J7120; Q9967; U0002; 00790; 94761; 97116-GP; 97162-GP; 99220; J7620-GY